=== PATIENT | male | born 1960 | race Caucasian/White ===

== ENCOUNTER 2018-11-08 11:38 | Emergency (ER) | payer BC, OTHER ==
[~2018-11-08] VITALS: Ht 182.9 cm; Wt 109.1 kg
[2018-11-08 12:01] VITALS: Ht 182.9 cm; Wt 109.1 kg
[2018-11-08] MEDS ORDERED: LIPITOR20 MG PO (12:02)
[2018-11-08] MEDS ORDERED: GLUCOPHAGE1000 MG PO (12:02)
[2018-11-08] MEDS ORDERED: JANUVIA25 MG PO (12:03)
[2018-11-08] MEDS ORDERED: VITAMIN D31000 UNI2 PO (12:03)
[2018-11-08] MEDS ORDERED: COZAAR50 MG PO (12:04)
[2018-11-08 12:33] LABS: BASOPHILS 0.3 % (0-2); EOSINOPHILS 4.5 % (0-7); HEMATOCRIT 44.2 % (42.0-54.0); IMMATURE GRANULOCYTES 0.2 % (0-5); LYMPHOCYTES 34.7 % (15-50); MCH 29.8 pg (26.0-34.0); MCHC 33.9 g/dL (31.0-37.0); MCV 87.9 fL (80.0-100.0); MONOCYTES 8.6 % (2-11); NEUTROPHILS 51.7 % (40-80); PLATELET COUNT 142 10x3/uL (130-400); RBC 5.03 10x6/uL (4.20-6.10); RDW 13.6 % (11.5-14.5); WBC 6.1 10x3/uL (4.8-10.8)
[2018-11-08 12:59] LABS: ALBUMIN 3.9 g/dL (3.4-5.0); ALKALINE PHOSPHATASE 80 U/L (46-116); ALT (SGPT) 32 U/L (10-68); AMYLASE - SERUM 70 U/L (25-115); BILIRUBIN - TOTAL 1.05 mg/dL (0.2-1.3); CALC OSMOLALITY 282 mosm/kg (275-300); CALCIUM 8.7 mg/dL (8.5-10.1); CARBON DIOXIDE 25.2 mmol/L (21.0-32.0); CHLORIDE - SERUM 104 mmol/L (98-107); CREATININE - SERUM 0.9 mg/dL (0.6-1.3); GLUCOSE 132 mg/dL (74-106); LIPASE 213 U/L (73-393); POTASSIUM - SERUM 4.1 mmol/L (3.5-5.1); PROTEIN - SERUM 7.8 g/dL (6.4-8.2); SODIUM 140 mmol/L (136-145); TROPONIN-I < 0.017 ng/mL (0.000-0.060); UREA NITROGEN 19 mg/dL (7-18); eGFR NON AFRICAN AMERICAN > 90 mL/min (90-120)
[2018-11-08 13:00] LABS: APPEARANCE CLEAR (CLEAR); COLOR YELLOW (YELLOW)
[2018-11-08 13:01] LABS: BACTERIA FEW /hpf (NONE SEEN); BILIRUBIN NEGATIVE (NEGATIVE); EPITHELIAL CELLS 0-5 /hpf (0-5); GLUCOSE NEGATIVE (NEGATIVE); KETONE NEGATIVE (NEGATIVE); MUCUS <1+ /lpf (NONE SEEN); NITRITE NEGATIVE (NEGATIVE); PROTEIN NEGATIVE (NEGATIVE); RED CELLS - URINE OCC /hpf (0-5); UROBILINOGEN NORMAL (NORMAL); WHITE CELLS - URINE OCC /hpf (0-5)
[2018-11-08] MEDS ORDERED: ULTRAM50 MG PO (15:12)
[2018-11-08] MEDS ORDERED: NAPROSYN500 MG PO (15:12)
[2018-11-08 15:26] VITALS: BP 133/81
== END 2018-11-08 15:14 | disposition home or self-care (01) ==
LOC: D.ER 11:38
PROVIDERS: Family Medicine
DX: M54.5 Low back pain (principal); R31.9 Hematuria, unspecified